=== PATIENT | female | born 1995 | race Caucasian/White ===

== ENCOUNTER 2021-02-15 01:53 | Inpatient (IN) ==
[2021-02-15] MEDS ORDERED: OXYTOCIN 30 UNITS/500 ML BAG IV PRN ×3 (04:41→18:37)
[2021-02-15] MEDS: LACTATED RINGER'S 1,000 ML IV PRN ×2 (04:56→11:58)
[2021-02-15 05:05] LABS: Hematocrit (blood only) 38.1 % (37-47); Hemoglobin 12.8 g/dL (12.0-16.0); Mean Corpuscular Hgb Conc 33.6 g/dL (32-36); Mean Corpuscular Volume 83.4 fL (80-100); Platelet Count 266 K/uL (130-400); RDW Coefficient of Variation 15.1 % (11.5-14.5); RDW Standard Deviation 46.4 fL (36.4-46.3); Red Blood Count 4.57 M/uL (4.2-5.4); White Blood Count 10.88 K/uL (4.8-10.8)
--- NOTE | 2021-02-15 09:44 | History & Physical Report ---
Date of Service February 15, 2021 Assessment & Plan (1) Irregular uterine contractions: (2) Labor, prolonged latent phase: Patient is a 25-year-old -0-0-1 at 38 weeks and 5 days of gestation presented to labor and delivery with irregular contractions, prolonged latent phase Vital signs stable afebrile GBS negative heart rate reassuring with normal baseline, accelerations present, decelerations absent, minimal to moderate variability. Plan, IV fluids, augment contractions with oxytocin/oxytocin challenge test Continue to monitor All questions were answered. Admission and Anticipated Discharge Date Admission Date: February 15, 2021 History of Present Illness Primary Care Provider: Elzbieta Puri MD Patient is a 25-year-old -0-0-1 at 38 weeks and 5 days of gestation who was admitted by Dr. Osorio this morning with contractions. Contractions started around 11:45 PM last night and got more regular and painful and she presented to labor and delivery at around 2 AM. Her cervix was 3 to 4 cm dilated 60% effaced -2 by labor and delivery nurse. She was expectantly managed. Contractions are still irregular every 4 to 6 minutes and not much painful. I checked her at 7:30 AM when I came this morning her cervix was 4 cm dilated 50% effaced head was ballotable at -4. heart rate with baseline of 140 with accelerations, no decelerations but with minimal variability. We gave her IV fluid bolus and p.o. apple juice and heart rate had been same with minimal variability is above. Her cervix is about the same since this morning. After discussion with the patient and her about her labor pattern and decreased heart rate heart rate variability we decided to keep her and augment the contractions with Pitocin which will also give us information as oxytocin challenge test. Her has been uncomplicated, GBS negative, coronavirus testing is negative. Rh- Allergies Allergy/AdvReac Type Severity Reaction Status Date / Time amoxicillin Allergy Mild Hives Verified 09/20/18 06:05 Home Medications Medication Instructions Recorded Confirmed Type Multivit/Min/Iron/Fol Ac/Pren 1 tab PO QPM #0 tab 01/09/15 02/15/21 History ( Vitamin) Patient History Medical History Ankle sprain Anxiety Dizziness Foot sprain normal course (spontaneous vaginal delivery) 2014, 2017 Urinary tract infection UTI (urinary tract infection) Weakness Family History Other Hypertension Social History Smoking Status: Never smoker Second Hand Exposure: No; Hx Alcohol Use: No Hx Substance Use: No Preferred Language: Sinhala Communication Ability: Effective Aviation Safety Inspector Required: No Beliefs That Will Affect Care: None marital status: Current Living Situation: Family Other Information That Helps Us Care for You: No Feels Safe at Home: Yes Safety Concerns: Feels Safe At This Time Assistive Devices: None OB History FT in 2018 by myself, no complications. 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 No h/o STD's, no HSV,Chlamydia/ GC Review of Systems All systems reviewed & are unremarkable except as noted in HPI & below Physical Exam Constitutional: WD/WN, vitals as above well developed NAD Gastrointestinal (Abdomen): normal bowel sounds, soft, nontender, no hepatosplenomegaly (GRAVID) Genitourinary: normal external appearance Manual OB Exam: + cervical dilation 4 cm, + cervical effacement 50% and + station high OB Exam Monitor Tracing: + category I Results & Data ([facility]) Vital Signs (Past 12 Hours) Vital Signs Temp Pulse Resp BP 02/15/21 07:30 37 C 77 18 123/70 02/15/21 07:24 77 123/70 02/15/21 04:59 36.9 C 76 130/65 02/15/21 02:11 36.7 C 20 02/15/21 02:08 78 135/72 02/15/21 02:06 36.7 C 20 Laboratory Results Lab Results 02/15/21 02/15/21 02/15/21 Range/Units 04:45 04:45 04:48 WBC 10.88 H (4.8-10.8) K/uL RBC 4.57 (4.2-5.4) M/uL Hgb 12.8 (12.0-16.0) g/dL Hct 38.1 (37-47) % MCV 83.4 (80-100) fL MCH 28.0 (25-34) pg MCHC 33.6 (32-36) g/dL RDW Std Deviation 46.4 H (36.4-46.3) fL RDW Coeff of Noemi 15.1 H (11.5-14.5) % Plt Count 266 (130-400) K/uL MPV 10.0 (7.4-10.4) fL COVID-19 Eval [facility] SARS-CoV-2, RNA, NAAT NEGATIVE (NEGATIVE) Monitoring External Monitor 140's, accelerations, no decels, minimal variability with episodes of increased variability Tocodynamometer Contractions q 4-7 min
[2021-02-15] MEDS ORDERED: fentaNYL citrate 100 MCG/2 ML VIAL ONE (15:17)
[2021-02-15] MEDS ORDERED: BUPIVACAINE 0.25% 30 ML VIAL ONE (15:17)
[2021-02-15] MEDS ORDERED: ePHEDrine sulfate 50 MG/ML AMP ONE (15:17)
[2021-02-15] MEDS ORDERED: SODIUM CHLORIDE 0.9% INJ 10 ML VIAL ONE (15:17)
[2021-02-15] MEDS ORDERED: fentaNYL 2MCG/ML ROPIVACAINE 1.25MG/ML 100 ML BAG EPI ONE (15:18)
--- NOTE | 2021-02-15 15:42 | Obstetrical Progress Note ---
Date of Service February 15, 2021 Assessment & Plan Admission and Anticipated Discharge Date Admission Date: February 15, 2021 Subjective Late entry from 1500 Patient feel more painful contractions, 6/10 in intensity Pitocin is at 12 miu/min Ctxs amado till irregular VE; 4-5 cm/ 50%/ -2, tight bag, AROM'ed clear fluid, abundant FHR 130-140's, accels+, no decels, min to moderate variability Continue to monitor closely Epidural for pain when she desires Results & Data ([facility]) Vital Signs (Past 12 Hours) Vital Signs Temp Pulse Resp BP 02/15/21 15:07 88 129/72 02/15/21 14:01 88 128/66 02/15/21 13:02 85 134/69 02/15/21 12:01 90 130/73 02/15/21 12:00 37.2 C 90 18 130/73 02/15/21 07:30 37 C 77 18 123/70 02/15/21 07:25 37.0 C 77 18 123/70 02/15/21 07:24 77 123/70 02/15/21 04:59 36.9 C 76 130/65
[2021-02-15] MEDS ORDERED: ONDANSETRON INJ 2 MG/ML 2 ML VIAL IV PRN (15:44)
[2021-02-15] MEDS ORDERED: diphenhydrAMINE 50 MG/ML VIAL IV PRN (15:44)
[2021-02-15] MEDS ORDERED: ePHEDrine sulfate 50 MG/ML AMP IV PRN (15:44)
[2021-02-15] MEDS ORDERED: NALOXONE HCL 1 MG in SODIUM CHLORIDE 0.9% 1000ML 1,000 ML IV PRN (15:44)
[2021-02-15] MEDS ORDERED: METOCLOPRAMIDE HCL 20 MG in SODIUM CHLORIDE 0.9% 50 ML IV PRN (15:44)
[2021-02-15] MEDS ORDERED: fentaNYL 2MCG/ML ROPIVACAINE 1.25MG/ML 100 ML BAG EPI PRN (15:44)
[2021-02-15] MEDS ORDERED: NALOXONE HCL 0.4 MG/1 ML VIAL/CARP IV PRN (15:44)
--- NOTE | 2021-02-15 15:44 | Anesthesiology Consultation ---
Date of Service February 15, 2021 Assessment & Plan Chart Review Chart Review: Acceptable Risk for Labor Epidural Consults Requested none ASA ASA2 Proposed Anesthesia Anesthesia Type: Labor Epidural Risk / Benefits Reviewed With: PT / POA / Parent / Guardian, Accepts Plan and Informed Consent Obtained History Height/Weight Height: 5 ft 4 in Weight: 89.811 kg Allergies Allergy/AdvReac Type Severity Reaction Status Date / Time amoxicillin Allergy Mild Hives Verified 09/20/18 06:05 Medications Home Medications Medication Instructions Recorded Confirmed Last Taken Multivit/Min/Iron/Fol Ac/Pren 1 tab PO QPM #0 tab 01/09/15 02/15/21 02/14/21 22:00 ( Vitamin) Active Medications Generic Name Dose Route Start Last Admin Trade Name Freq PRN Reason Stop Dose Admin Lactated Ringer's 1,000 mls @ 150 mls/hr 02/15/21 04:41 02/15/21 11:58 Lr IV 02/17/21 04:40 150 mls/hr .Q6H40M PRN Administration L&D Protocol Protocol Oxytocin 30 units in 500 mls @ 10 mls/hr 02/15/21 09:45 02/15/21 14:00 Pitocin IV 02/17/21 09:44 0.6 units/hr .Q24H PRN 10 mls/hr Labor Induction/Augmentation Titration Protocol 0.6 UNITS/HR NPO Date Last Intake of Fluids: 02/15/21 Time Last Intake of Fluids: 15:00 Date Last Intake of Solids: 02/14/21 Time Last Intake of Solids: 19:30 Past Medical History Medical History Ankle sprain Anxiety Dizziness Foot sprain normal course (spontaneous vaginal delivery) 2014, 2017 Urinary tract infection UTI (urinary tract infection) Weakness Exercise / Class Metabolic Activity II 4-5 Yardwork/Stairs/Walk up hill Past Family History Family History Other Hypertension Past Anesthesia History No Hx of Anesthesia Complications and No Family Hx of Anesthesia Complications History of PONV No Hx of PONV and No Hx of Motion Sickness Social History Smoking Status: Never smoker Hx Alcohol Use: No Hx Substance Use: No substance use type: does not use Physical Exam Vital Signs Last Vital Signs Temp 37.2 C 02/15/21 12:00 Pulse 88 02/15/21 15:07 Resp 18 02/15/21 12:00 BP 129/72 02/15/21 15:07 ENMT Mouth: no TMJ abnormality Thyromental Distance: > or= 3.5 Finger Breadths Mallampati Class: II Neck normal visual inspection and trachea midline; neck extension not limited Respiratory normal respiratory effort Auscultation: lungs clear to auscultation bilaterally Cardiovascular Rate/Rhythm: regular rate and regular rhythm Heart Sounds: no murmur Musculoskeletal Spine: normal cervical ROM Extremities: full ROM of extremities Neurologic moves all extremities Psychiatric Orientation: alert and oriented x 3 Testing Laboratory Results 02/15/21 04:48
[2021-02-15] MEDS ORDERED: D5W AND LACTATED RINGERS 1,000 ML IV SCH (16:00)
--- NOTE | 2021-02-15 17:14 | Obstetrical Progress Note ---
Date of Service February 15, 2021 Assessment & Plan Admission and Anticipated Discharge Date Admission Date: February 15, 2021 Subjective Patient is comfortable now, received epidural for pain VE; 5/ 50%/ -2 FHR categ I Centuria ctxs q 2-4 min Continue to monitor closely Peanut ball Results & Data ([facility]) Vital Signs (Past 12 Hours) Vital Signs Temp Pulse Resp BP Pulse Ox 02/15/21 17:08 81 94 02/15/21 17:03 76 96 02/15/21 17:00 80 94 02/15/21 16:58 82 95 02/15/21 16:55 76 114/60 02/15/21 16:53 82 95 02/15/21 16:50 76 124/62 02/15/21 16:48 92 H 97 02/15/21 16:45 79 123/58 L 94 02/15/21 16:43 89 96 02/15/21 16:40 75 119/59 L 02/15/21 16:38 78 96 02/15/21 16:35 78 118/64 02/15/21 16:33 84 95 02/15/21 16:30 96 H 125/67 02/15/21 16:28 85 97 02/15/21 16:27 86 126/68 02/15/21 16:25 83 120/71 02/15/21 16:24 72 122/62 02/15/21 16:23 84 97 02/15/21 16:21 79 121/75 02/15/21 16:20 82 116/65 02/15/21 16:18 80 115/66 97 02/15/21 16:16 88 124/68 02/15/21 16:14 97 H 141/66 H 02/15/21 16:13 85 97 02/15/21 16:12 88 136/71 02/15/21 16:10 76 128/68 02/15/21 16:08 89 98 02/15/21 16:03 78 140/74 99 02/15/21 15:58 85 97 02/15/21 15:55 37.2 C 99 H 18 127/63 98 02/15/21 15:53 81 127/63 98 02/15/21 15:48 85 99 02/15/21 15:07 88 129/72 02/15/21 14:01 88 128/66 02/15/21 13:02 85 134/69 02/15/21 12:01 90 130/73 02/15/21 12:00 37.2 C 90 18 130/73 02/15/21 07:30 37 C 77 18 123/70 02/15/21 07:25 37.0 C 77 18 123/70 02/15/21 07:24 77 123/70
[2021-02-15] MEDS ORDERED: bisacodyL 10 MG SUPP PR PRN (18:37)
[2021-02-15] MEDS ORDERED: ACETAMINOPHEN 325 MG TAB PO PRN (18:37)
[2021-02-15] MEDS ORDERED: HYDROCORTISONE ACETATE 25 MG SUPP PR PRN (18:37)
[2021-02-15] MEDS ORDERED: DIPHTHERIA/TETANUS/PERTUSSIS 0.5 ML SYR/VIAL IM ONE (18:37)
[2021-02-15] MEDS ORDERED: MEASLES, MUMPS & RUBELLA VIRUS VIAL SQ ONE (18:37)
[2021-02-15] MEDS ORDERED: BENZOCAINE 20% AER SPR 82.5 GM CAN EXT PRN (18:37)
[2021-02-15] MEDS ORDERED: SUPERCREAM 0.870% 15 GM JAR EXT PRN (18:37)
--- NOTE | 2021-02-15 18:54 | Anesthesiology Progress Note ---
Date of Service February 15, 2021 Anesthesia Post Procedure Vital Signs Vital Signs: Temp Pulse Resp BP Pulse Ox 02/15/21 18:50 85 18 126/66 02/15/21 18:38 93 H 96 02/15/21 18:35 85 18 120/57 L 96 02/15/21 18:33 78 98 02/15/21 18:28 92 H 97 02/15/21 18:27 92 H 136/64 02/15/21 18:23 102 H 100 02/15/21 18:18 92 H 98 02/15/21 18:13 90 139/68 98 02/15/21 18:08 92 H 98 02/15/21 18:03 84 97 02/15/21 17:58 78 119/63 96 02/15/21 17:53 96 H 97 02/15/21 17:48 99 H 98 02/15/21 17:43 83 96 02/15/21 17:42 86 121/64 02/15/21 17:38 89 95 02/15/21 17:33 80 96 02/15/21 17:28 82 96 02/15/21 17:27 83 125/70 02/15/21 17:23 86 96 02/15/21 17:18 86 96 02/15/21 17:13 83 96 02/15/21 17:12 85 123/76 02/15/21 17:08 81 94 02/15/21 17:03 76 96 02/15/21 17:00 80 94 02/15/21 16:58 82 95 02/15/21 16:55 76 114/60 02/15/21 16:53 82 95 02/15/21 16:50 76 124/62 02/15/21 16:48 92 H 97 02/15/21 16:45 79 123/58 L 94 02/15/21 16:43 89 96 02/15/21 16:40 75 119/59 L 02/15/21 16:38 78 96 02/15/21 16:35 78 118/64 02/15/21 16:33 84 95 02/15/21 16:30 96 H 125/67 02/15/21 16:28 85 97 02/15/21 16:27 86 126/68 02/15/21 16:25 83 120/71 02/15/21 16:24 72 122/62 02/15/21 16:23 84 97 02/15/21 16:21 79 121/75 02/15/21 16:20 82 116/65 02/15/21 16:18 80 115/66 97 02/15/21 16:16 88 124/68 02/15/21 16:14 97 H 141/66 H 02/15/21 16:13 85 97 02/15/21 16:12 88 136/71 02/15/21 16:10 76 128/68 02/15/21 16:08 89 98 02/15/21 16:03 78 140/74 99 02/15/21 15:58 85 97 02/15/21 15:55 37.2 C 99 H 18 127/63 98 02/15/21 15:53 81 127/63 98 02/15/21 15:48 85 99 02/15/21 15:07 88 129/72 02/15/21 14:01 88 128/66 02/15/21 13:02 85 134/69 02/15/21 12:01 90 130/73 02/15/21 12:00 37.2 C 90 18 130/73 02/15/21 07:30 37 C 77 18 123/70 02/15/21 07:25 37.0 C 77 18 123/70 02/15/21 07:24 77 123/70 02/15/21 04:59 36.9 C 76 130/65 02/15/21 02:11 36.7 C 20 02/15/21 02:08 78 135/72 02/15/21 02:06 36.7 C 20 Pain Intensity Lower Medial Abdomen: Pain Intensity: 0 Transfer of Care Handoff Completed per policy Notes Mental Status: alert / awake / arousable and participated in evaluation Patient Amnestic to Procedure: Yes Nausea / Vomiting: adequately controlled Pain: adequately controlled Airway Patency, RR, SpO2: stable & adequate BP & HR: stable & adequate Hydration State: stable & adequate Anesthetic Complications: no major complications apparent and Pt Satisfied with anesthetic care
[2021-02-15] MEDS: DOCUSATE SODIUM 100 MG CAP PO SCH (20:55)
--- NOTE | 2021-02-16 01:44 | Delivery Summary ---
DATE OF OPERATION: 02/15/2021 DELIVERY NOTE TIME OF DELIVERY: 18:24 p.m. DETAILS OF DELIVERY: The patient was found to be fully dilated and desired to push. She pushed through 2 contractions only, delivered the head without difficulty. There was a nuchal cord around the neck x1 which was reduced. Shoulders were delivered with minimal traction. Baby was handed off to the mother where mouth and nose were suctioned. Cord was clamped x2 and cut. Cord blood was obtained. Perineum and vagina were checked for lacerations and it was intact. No lacerations were found. The placenta was found to be in the vagina, delivered spontaneous as intact and complete. Uterus was explored, found to be empty. Fundus was firm. EBL was 100 mL. Mom and baby tolerated the procedure well. Sponge and instrument count was correct x2. Baby was a viable male , Apgars 8/9, weight is 3668 gr. No complications happened and I was present during whole procedure. I attest to the content of the Intraoperative Record and any orders documented therein. Any exceptions are noted below. BITA
[2021-02-16] MEDS: IBUPROFEN 600 MG TAB PO PRN ×3 (04:19→15:35)
[2021-02-16 06:39] LABS: Hematocrit (blood only) 34.9 % (37-47); Hemoglobin 11.4 g/dL (12.0-16.0); Mean Corpuscular Hemoglobin 27.3 pg (25-34); Mean Corpuscular Hgb Conc 32.7 g/dL (32-36); Mean Corpuscular Volume 83.7 fL (80-100); Mean Platelet Volume 9.8 fL (7.4-10.4); Platelet Count 199 K/uL (130-400); RDW Coefficient of Variation 15.2 % (11.5-14.5); RDW Standard Deviation 46.5 fL (36.4-46.3); Red Blood Count 4.17 M/uL (4.2-5.4)
[2021-02-16] MEDS ORDERED: PRENATAL VITAMIN 1 TAB PO SCH (08:00)
[2021-02-16] MEDS ORDERED: FERROUS SULFATE 325 MG TAB PO SCH (08:00)
[2021-02-16] MEDS: DOCUSATE SODIUM 100 MG CAP PO SCH ×2 (08:48→20:28)
--- NOTE | 2021-02-16 09:44 | Obstetrical Progress Note ---
Date of Service February 16, 2021 Assessment & Plan Admission and Anticipated Discharge Date Admission Date: February 15, 2021 Subjective PPD#1 doing well plans for d/c later today passing gas tolerating diet out of bed Physical Exam Constitutional: WD/WN, vitals as above comfortable abdomen soft and non- tender no edema neg Prudencio's for d/c home today Results & Data ([facility]) Vital Signs (Past 12 Hours) Vital Signs Temp Pulse Resp BP 02/16/21 08:06 36.5 C 67 18 128/77 02/16/21 04:20 36.4 C L 68 18 118/72 02/15/21 23:45 36.7 C 71 18 123/76 Laboratory Results Laboratory Results - last 72 hr 02/15/21 02/15/21 02/15/21 04:45 04:45 04:48 WBC 10.88 H RBC 4.57 Hgb 12.8 Hct 38.1 MCV 83.4 MCH 28.0 MCHC 33.6 RDW Std Deviation 46.4 H RDW Coeff of Noemi 15.1 H Plt Count 266 MPV 10.0 COVID-19 Eval Order Covid19 [facility] SARS-CoV-2, RNA, NAAT NEGATIVE Blood Type Antibody Screen Screen 02/16/21 02/16/21 06:17 06:17 WBC 11.30 H RBC 4.17 L Hgb 11.4 L Hct 34.9 L MCV 83.7 MCH 27.3 MCHC 32.7 RDW Std Deviation 46.5 H RDW Coeff of Noemi 15.2 H Plt Count 199 MPV 9.8 COVID-19 Eval Order SARS-CoV-2, RNA, NAAT Blood Type A Negative Antibody Screen NEGATIVE Screen Negative
[2021-02-16] MEDS ORDERED: bisacodyL 5 MG TABEC PO SCH (20:00)
== END 2021-02-16 20:15 | disposition home or self-care (01) | DRG 807 ==
LOC: OPB 01:53 → 4S1 02:01 → 4S2 20:54

== ENCOUNTER 2024-02-16 20:54 | Observation (INO) ==
[2024-02-16] MEDS ORDERED: ACETAMINOPHEN 325 MG TAB PO PRN (21:26)
[2024-02-16] MEDS: LACTATED RINGER'S 1,000 ML IV ONE ×2 (21:45→23:24)
[2024-02-16 22:24] LABS: Appearance Urine Clear (Clear); Bacteria Urine Automated Negative (Negative); Bilirubin Urine Negative (Negative); Blood Urine Negative (Negative); Color Urine Yellow; Epithelial Cell Urine Auto >30 /lpf (0-5); Glucose Urine UA Negative (Negative); Ketones Urine Trace (Negative); Leukocyte Esterase Urine 1+ (Negative); Nitrite Urine Negative (Negative); Protein Urine Negative (Negative); RBC Urine Automated 0-4 /hpf (0-4); Specific Gravity Urine 1.011 (1.000-1.030); Urobilinogen Urine Negative (Negative)
[2024-02-16] MEDS ORDERED: BUTORPHANOL TARTRATE 2 MG/ML VIAL IV PRN (23:21)
[2024-02-16] MEDS: ACETAMINOPHEN 1,000 MG/100 ML VIAL IV STA (23:36)
[2024-02-17] MEDS ORDERED: LACTATED RINGER'S 1,000 ML IV PRN (01:41)
[2024-02-17] MEDS ORDERED: OXYTOCIN 30 UNITS/NSS 30 UNITS/500 ML BAG IV PRN (01:41)
[2024-02-17] MEDS ORDERED: LIDOCAINE 1% LOCAL 20 ML VIAL INFIL PRN (01:41)
[2024-02-17] MEDS: ceFAZolin 2000MG 2,000 MG/15 ML SYR IV SCH (02:00)
--- NOTE | 2024-02-17 02:01 | Obstetrical Progress Note ---
Date of Service February 17, 2024 Assessment & Plan (1) Uterine contractions at greater than 20 weeks of gestation: (2) Labor, prolonged latent phase: Plan: Patient is a 28-year-old -0-0-3 at 38 weeks and 5 days of gestation who presented with with irregular contractions which were happening for the last 3 weeks, cervical change since she arrived to labor and delivery last night, Vital signs stable afebrile, heart rate reassuring, GBS positive, Plan to admit, monitor, labs, start IV antibiotics, expectant management for now and reevaluate in the morning after IV antibiotics are complete, epidural for pain when she desires All questions were answered. (3) GBS (group B Streptococcus carrier), +RV culture, currently : Admission and Anticipated Discharge Date Admission Date: February 17, 2024 Subjective Patient is a 28-year-old -0-0-3 at 38 weeks and 5 days of gestation who has been having irregular contractions for the last 3 weeks. She has been here 3 times for the last 3 weeks with irregular contractions and has not been active labor and sent home. She states they never stopped they make her uncomfortable and she cannot rest or sleep. She denies leakage of fluid or vaginal bleeding. She reports good movements. Her has been uncomplicated except GBS positive. She denies any other medical problems. Review of Systems Constitutional: as per Subjective / HPI Physical Exam Constitutional: WD/WN, vitals as above well developed and well nourished Gastrointestinal (Abdomen): normal bowel sounds, soft, nontender, no hepatosplenomegaly Genitourinary: normal external appearance OB Exam Abdomen: + vertex Manual OB Exam: + cervical dilation 4 cm, + cervical effacement 50% and + station -2 (tight bulging bag) OB Exam Monitor Tracing: + external uterine monitor used and + category I Results & Data Vital Signs (Past 12 Hours) Vital Signs Temp Pulse Resp BP 02/17/24 00:17 76 129/70 02/17/24 00:15 20 02/16/24 21:05 85 138/77 02/16/24 21:00 36.7 C 20
[2024-02-17 02:39] LABS: Hemoglobin 11.5 g/dl (12.0-16.0); Mean Corpuscular Hemoglobin 27.1 pg (25.0-34.0); Mean Corpuscular Hgb Conc 33.8 g/dL (32.0-36.0); Mean Platelet Volume 9.7 fL (9.4-12.4); Platelet Count 283 K/uL (130-400); RDW Coefficient of Variation 14.3 % (11.5-14.5); RDW Standard Deviation 41.3 fL (36.4-46.3); Red Blood Count 4.25 M/uL (4.20-5.40); White Blood Count 12.82 K/ul (4.8-10.8)
--- OUTSIDE RECORDS SUMMARY | 2024-02-17 09:36 | External Medical Summary ---
Author Name Unknown Address Unknown Organization [id number]:[facility] - [address] [place] [address] Laboratory Report Ordering Provider Test Date Status NEMO PACE 02/01/2024 11:16:52 Final Observation Date Value Abnormality Reference (Units) Status Bacteria identified in Specimen by Culture 02/01/2024 11:16:52 [id number]^BETA STREPTOCOCCUS GROUP B Abnormal Final Beta Streptococcus group B Performing Location [facility] - [address] [place] [address] Ordering Provider Test Date Status NEMO PACE 02/01/2024 11:16:52 Final Observation Date Value Abnormality Reference (Units ) Status Clindamycin 02/01/2024 11:16:52 >=1 Resistant Final Penicillin susceptibility 02/01/2024 11:16:52 <=0.06 Susceptible Final Vancomycinsusceptibility 02/01/2024 11:16:52 0.5 Susceptible Final Test: Group B Strep Suscepti bility
Specimen Source: Vaginal Rectal
Specimen Type: Swab
Specimen Date: 02/01/2024 11:16 AM
Result Date: 02/06/2024 12:27 PM
Result Status: Final result
Abnormal: Yes
Resulting Lab: [facility]
[address]
[place] [id number]

CULTURE

Beta Streptococcus group B (Abnormal)

SUSCEPTIBILITY

Beta Streptococcus
group B
METHOD MICROBROTH
DILUTIONS

CLINDAMYCIN >=1 Resistant
PENICILLIN G <=0.06 Susceptible
VANCOMYCIN 0.5 Susceptible

null Performing Location [facility] - [address] [facility] [address]
--- OUTSIDE RECORDS SUMMARY | 2024-02-17 09:36 | External Medical Summary | Summary of Care ---
Author Name Unknown Organization [facility] Address [address] [facility] [place] [address] Phone [phone] Care Team Providers Care Airport Duty Manager Name Role Phone Unavailable Primary Care Provider Unavailabl e Reason for Visit * Reason Comments Return Visit Encounter Details Date Type Department Care Team (Late st Contact Info) Description 02/12/2024 8:45 AM EDT Office Visit Gynecology/Obstetri [facility]antos [facility] [address] [place] [address] Mai Mar CRNP [address] [place] [address] Supervision of other normal , antepartum*; Family history of Down syndrome; Rh negative status during in third trimester; GBS (group B Streptococcus carrier), +RV culture, currently Allergies Active Allergy Reactions Criticality Noted Date Comments Amoxicillin Hives,Rash High 07/18/2013 documented as of this encounter (statuses as of 02/12/2024) Medications Medication Sig Dispensed Refills Start Date End Date Status 27-0.8 MG Oral Tablet Take 1 Tablet by mouth daily at noon. 0 Active documented as of this encounter (statuses as of 02/12/2024) Active Problems Problem Noted Date Diagnosed Date GBS (group B Streptococcus c arrier), +RV culture, currently 02/07/2024 Supervision of other normal , antepartu m 07/20/2023 Rh negative status during 07/30/2020 Overview: A neg Vitamin D insufficiency 01/20/2015 Overview: Dec 2014 = 23. Anxiety state 01/19/2015 Overview: 2012 - [place] Suggested contacting her again, eliminating caffeine, getting sufficient rest, getting exercise. Family history of Down syndrome 12/12/2014 Overview: sister with down syndrome Estimated Date of Delivery Comme nts Yes 02/27/2024 Based on Ultraso und documented as of this encounter (statuses as of 02/12/2024) Resolved Problems Problem Noted Date Diagnosed Date Resolved Date Supervision of other normal 07/15/2020 02/15/2021 Overview: Rubella immune Flu vacc. 11/10/20 Supervision of other normal , antepartum 02/08/2018 09/20/2018 Overview: Rhogam given 07/13/2018 Araseli Powell RN TDAP given 07/13/2018 Araseli Powell RN Problem Action Taken Date entered Entered by Date resolved WIC Due date letter given. 07/27/2018 Nahed Hamlin RN 07/27/2018 Problem Action Taken Date entered Entered by Date resolved Breast Feeding Pt plans on breast feeding-has pump from previous 08/13/2018 Radha Canada RN 08/13/18 Problem Action Taken Date entered Entered by Date resolved Current needs or questions Patient denies having any current needs or questions 08/27/2018 Batool Srinivasan RN 08/27/18 Problem Action Taken Date entered Entered by Date resolved Current needs or questions Patient denies having any current needs or questions 09/17/2018 Nahed Hamlin RN 09/17/2018 GBS (group B Streptococcus c arrier), +RV culture, currently 07/23/2015 09/02/2015 Rh negative, antepartum 12/15/2014 11/0 11/2017 Overview: Rhogam candidate 07/13/18 , normal first 12/12/201408/20 Overview: 07/10/2015 Tdap Vaccine administered per clinic protocol. Pt given VIS(vaccine information sheet) Priyanka Beaulieu RN documented as of this encounter (statuses as of 02/12/2024) Immunizations Name Administration Dates Next Due Seasonal Influenza, PF, 6 M & above, IM , (FluLaval or Fluzone) 11/10/2020 TDAP (age 10 and older)(Boostrix) 2023,12/08/2020,07/13/2018,07/10/20 15 documented as of this encounter Social History Tobacco Use Types Packs/Day Years Used Date Smoking Tobacco: Never Smokeless Tobacco: Never Alcohol Use Standard Drinks/Week Comments No 0 (1 standard drink = 0.6 oz pur e alcohol) PHQ-2 Answer Date Recorded PHQ-2 Score 0 06/30/2020 Hunger Vital Sign Answer Date Recorded Within the past 12 months, y ou worried that your food would run out before you got the money to buy more. Never true 07/20/20 23 Within the past 12 months, t he food you bought just didn't last and you didn't have money to get more. Never true 07/20/2023 [place] Depression Scale Answer Date Recorded [place] Depression Scale Total 7 01/23/2024 The thought of harming myself has occurred to me . Never 01/23/2024 Estimated Date of Delivery Comme nts Yes 02/27/2024 Based on Ultraso und Sex and Gender Information Value Date Recorded Sex Assigned at Female 07/20/2023 9:06 AM EDT Gender Identity Female 07/20/2023 9:06 AM EDT Sexual Orientation Straight 06/08/2021 1: 57 PM EDT Job Start Date Occupation Industry Not on file Not on file Not on file documented as of this encounter Last Filed Vital Signs Vital Sign Reading Time Taken Comments Blood Pressure 112/72 02/12/2024 8:37 AM EDT Pulse - - Temperature - - Respiratory Rate - - Oxygen Saturation - - Inhaled Oxygen Concentration - - Weight 92.5 kg (204 lb) 02/12/2024 8:37 AM EDT Height - - Body Mass Index 35.02 02/01/2024 10:11 AM EDT documented in this encounter Progress Notes * Mai Mar CRNP - 02/12/2024 8:39 AM EDT 37w6d Some irregular ctx. No bleeding/leaking. Baby is active. 1 week return GONSALO Boles * Melissa Garcia LPN - 02/12/2024 8:37 AM EDT 37w6d Denies vaginal bleeding/rom + movement Some contractions documented in this encounter Plan of Treatment Upcoming Encounters Date Type Department Care Team (Late st Contact Info) Description 02/23/2024 8:45 AM EDT [facility] [address] [place] [address] Mai Mar CRNP [address] [place] [address] Health Maintenance Due Date Last Done Comments Hepatitis B (1 of 3 - 19+ 3-dose series) 2014 Depression Screening 06/30/2021 06/30/2020 COVID-19 Vaccine ( - 2022- season) 2023 Influenza Vaccine (FLU shot) (#1) 2023 11/10/2020, 11/10/2020, 09/21/2018 Pap Smear 07/20/2026 07/20/2023, 06/21, 03/14/2017 DTaP,Tdap,and Td Vaccines (5 - Td or Tdap) 12/29/2033 12/29/2023, 12/08/2020, 07/13/2018, Additional history exists Gonorrhea / Chlamydia Screen Discontinued 07/20/2023, 07/15/2020, 02/08/2018, Additional history exists GARDASIL-HPV IMMUNIZATION SERIES Aged Out No longer eligible based on patient's age to complete this topic MENINGOCOCCAL (MENACTRA/MENVEO) Aged Out No longer eligible based on patient's age to complete this topic Pneumococcal Vaccine: Pediatrics (0 to 5 Years) and At-Risk Patients (6 to 64 Years) Aged Out No longer eligible based on patient's age to complete this topic documented as of this encounter Medical Devices Not on filedocumented as of this encounter Visit Diagnoses Diagnosis Supervision of other normal , antepartum- Primary Family history of Down syndrome Family history of congenital anomalies Rh negative status during in third trimester GBS (group B Streptococcus carrier), +RV culture, currently Supervision of other high-risk documented in this encounter
--- OUTSIDE RECORDS SUMMARY | 2024-02-17 09:36 | External Medical Summary | Summary of Care ---
Author Name Unknown Organization [facility] Address [address] [facility] [place] [address] Phone [phone] Care Team Providers Care Gate Technician Name Role Phone Unavailable Primary Care Provider Unavailabl e Reason for Visit * Reason Comments Return Visit Encounter Details Date Type Department Care Team (Late st Contact Info) Description 02/07/2024 8:30 AM EDT Office Visit Gynecology/Obstetri santos [facility] [address] [place] [address] Mai Mar CRNP [address] [place] [address] Supervision of other normal , antepartum*; Family history of Down syndrome; Rh negative status during in third trimester; GBS (group B Streptococcus carrier), +RV culture, currently Allergies Active Allergy Reactions Criticality Noted Date Comments Amoxicillin Hives,Rash High 07/18/2013 documented as of this encounter (statuses as of 02/07/2024) Medications Medication Sig Dispensed Refills Start Date End Date Status 27-0.8 MG Oral Tablet Take 1 Tablet by mouth daily at noon. 0 Active documented as of this encounter (statuses as of 02/07/2024) Active Problems Patient Care Coordination No te Formatting of this note is d ifferent from the original. Problem Action Taken Date entered Entered by Date resolved nutrition Attending [facility] 05/18/2015 Nahed Hamlin RN education [place] [facility] 05/18/2015 Nahed Hamlin RN education Accepts for Aug 05/18/2015 Nahed Hamlin RN Problem Action Taken Date entered Entered by Date resolved Reviewed problem list No changes noted 06/04/2015 Batool Srinivasan RN Problem Action Taken Date entered Entered by Date resolved Current needs or questions Patient denies having any current needs or questions 07/10/2015 Batool Srinivasan RN Problem Action Taken Date entered Entered by Date resolved Current needs or questions Patient denies having any current needs or questions 07/23/2015 Batool Srinivasan RN Problem Action Taken Date entered Entered by Date resolved Concerns about signs of labor Educated pt on when to call for evaluation: contx every 5 min for an hour, rom, vaginal bleeding, decreased movement 08/05/2015 Batool Srinivasan RN Problem Action Taken Date entered Entered by Date resolved PP visit Pt doing well. . Adjusting. Baby doing well. Gaining weight. Plans ocp's for control. 09/22/2015 Nahed Hamlin RN Problem Noted Date Diagnosed Date GBS (group B Streptococcus c arrier), +RV culture, currently 02/07/2024 Supervision of other normal , antepartu 07/20/2023 Rh negative status during 07/30/2020 Overview: A neg Vitamin D insufficiency 01/20/2015 Overview: Dec 2014 = 23. Anxiety state 01/19/2015 Overview: 2012 - saw counselor in [place] [facility]. Suggested contacting her again, eliminating caffeine, getting sufficient rest, getting exercise. Family history of Down syndrome 12/12/2014 Overview: sister with down syndrome Estimated Date of Delivery Comme nts Yes 02/27/2024 Based on Ultraso und documented as of this encounter (statuses as of 02/07/2024) Resolved Problems Problem Noted Date Diagnosed Date [...] as of this encounter (statuses as of 02/07/2024) Immunizations Name Administration Dates Next Due Seasonal [...] money to get more. Never true 07/20/2023 [place] Depression Scale Answer Date Recorded [place] Depression Scale Total 7 01/23/2024 The thought [...] Sign Reading Time Taken Comments Blood Pressure 104/70 02/07/2024 8:22 AM EDT Pulse - - Temperature - - Respiratory Rate - - Oxygen Saturation - - Inhaled Oxygen Concentration - - Weight 92.1 kg (203 lb) 02/07/2024 8:22 AM EDT Height - - Body Mass Index 34.84 02/01/2024 10:11 AM EDT documented in this encounter Progress Notes * Mai Mar CRNP - 02/07/2024 8:30 AM EDT 37w1d No bleeding, baby is active. Was at the hospital for ctx last week, sent home. Still w/ctx but not regular. Increase in discharge, feeling damp, nothing constant. Unsure if ROM vs normal discharge. Staying hydrated, no bladder changes. Denies vaginal itching/burning. On exam, perineum is dry. No pooling, neg Nitrazine, +physiologic discharge. Cervix 2 cm, unchangedfrom last exam. Return in 1 week, call sooner prn. 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 Name of healthcare administrative assistant: GONSALO Sims LPN documented in this encounter Nursing Notes * Melissa Garcia LPN - 02/07/2024 8:25 AM EDT 37w1d Denies vaginal bleeding/rom Noticed some wetness yesterday but unsure if fluid or discharge. Noticed also this morning. + movement Contractions Was seen at ER for timable contractions but was sent home. documented in this encounter Plan of Treatment Upcoming Encounters Date Type Department Care Team (Late st Contact Info) Description 02/12/2024 8:45 AM EDT Office Visit Gynecology/Obstetrics [facility] [address] [place] [address] Mai Mar CRNP [address] [place] [address] 02/23/2024 8:45 AM EDT Office Visit Gynecology/Obstetrics [facility] [address] [place] [address] Mai Mar CRNP [address] [place] [address] Health Maintenance Due Date Last Done Comments [...]
== END 2024-02-17 09:35 | disposition home or self-care (01) ==
LOC: OPB 20:54 → 4S1 20:55 → INTOOBSV 02-17 01:42 → 4S1 02-17 01:42

== ENCOUNTER 2024-02-20 07:30 | Inpatient (IN) ==
[2024-02-20] MEDS ORDERED: LIDOCAINE 1% LOCAL 20 ML VIAL INFIL PRN (08:40)
[2024-02-20] MEDS ORDERED: OXYTOCIN 30 UNITS/NSS 30 UNITS/500 ML BAG IV PRN (08:40)
--- NOTE | 2024-02-20 08:57 | History & Physical Report ---
Date of Service February 20, 2024 Assessment & Plan Admission and Anticipated Discharge Date Admission Date: February 20, 2024 History of Present Illness Chief Complaint: induction of labor Primary Care Provider: Elzbieta Puri MD 28 F [id number] at 39 weeks here for IOL due to fast labors. GBS is positive. Allergies Allergy/AdvReac Type Severity Reaction Status Date / Time amoxicillin Allergy Mild Hives Verified 02/03/24 14:25 Home Medications Medication Instructions Recorded Confirmed Type vits no.124-ferrous fum 1 tab PO DAILY 01/31/24 02/20/24 History 27 mg iron-folic acid 800 mcg tablet ( Vitamin) Patient History Medical History (spontaneous vaginal delivery) 2014, 2017, 2020 Foot sprain Ankle sprain Anxiety Urinary tract infection Surgical History No pertinent past surgical history Family History Other Hypertension Social History Smoking Status: Never smoker Second Hand Exposure: No; Do You Dip or Chew Tobacco: No; Hx Alcohol Use: No Hx Substance Use: No Preferred Language: [place] Communication Ability: Effective Exploration Engineer Required: No Beliefs That Will Affect Care: None marital status: Current Living Situation: Spouse and Family Current Living Situation Comment: 3,5,8 kids Feels Safe at Home: Yes Assistive Devices: None 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 Review of Systems All systems reviewed & are unremarkable except as noted in HPI & below Physical Exam Constitutional: WD/WN, vitals as above Eyes: PERRL, conjunctivae normal, anicteric sclerae Cardiovascular: RRR, no murmur, no edema Gastrointestinal (Abdomen): Inspection/Auscultation: abdomen normal to inspection Musculoskeletal: Extremities: extremities normal to inspection Skin: no rashes, warm and dry Neurologic: patellar DTR's 2+ bilat, sensation intact Psychiatric: A+Ox3, euthymic affect Genitourinary: no vaginal lesions, no adnexal mass Manual OB Exam: + cervical dilation 3 cm and 4 cm, + cervical effacement 50% and + station -2 OB Exam Monitor Tracing: + external FHT monitor used, + external uterine monitor used, + category I and + normal FHT variability GBS positive EFW 8 lbs. Results & Data Vital Signs (Past 12 Hours) Vital Signs Temp Pulse Resp BP 02/20/24 07:42 92 H 133/70 02/20/24 07:06 36.6 C 92 H 20 133/70
--- OUTSIDE RECORDS SUMMARY | 2024-02-20 09:17 | External Medical Summary | Summary of Care ---
Author Name Unknown Organization [facility] Address [address] [facility] [place] [address] Phone [phone] Care Team Providers Care Quality Engineer Medical Device Name Role Phone Unavailable Primary Care Provider Unavailabl e Encounter Details Date Type Department Care Team (Late st Contact Info) Description 02/16/2024 Result Scan Unspecified Department Alia Umanzor MD [address] [place] [address] <No scans attached> Allergies Active Allergy Reactions Criticality Noted Date Comments Amoxicillin Hives,Rash High 07/18/2013 documented as of this encounter (statuses as of 02/19/2024) Medications Medication Sig Dispensed Refills Start Date End Date Status 27-0.8 MG Oral Tablet Take 1 Tablet by mouth daily at noon. 0 Active documented as of this encounter (statuses as of 02/19/2024) Active Problems Problem Noted Date Diagnosed Date GBS (group B Streptococcus c arrier), +RV culture, currently 02/07/2024 Supervision of other normal , antepartu m 07/20/2023 Rh negative status during 07/30/2020 Overview: A neg Vitamin D insufficiency 01/20/2015 Overview: Dec 2014 = 23. Anxiety state 01/19/2015 Overview: 2012 - saw counselor in [place], helpful. Suggested contacting her again, eliminating caffeine, getting sufficient rest, getting exercise. Family history of Down syndrome 12/12/2014 Overview: sister with down syndrome Estimated Date of Delivery Comme nts Yes 02/27/2024 Based on Ultraso und documented as of this encounter (statuses as of 02/19/2024) Resolved Problems Problem Noted Date Diagnosed Date [...] as of this encounter (statuses as of 02/19/2024) Immunizations Name Administration Dates Next Due Seasonal [...] money to get more. Never true 07/20/2023 [place] Depression Scale Answer Date Recorded [place] Depression Scale Total 7 01/23/2024 The thought [...] on file documented as of this encounter Plan of Treatment Upcoming Encounters Date Type Department Care Team (Late st Contact Info) Description 02/23/2024 8:45 AM EDT Office Visit Gynecology/Obstetrics [facility] [address] [place] [address] Mai Mar CRNP [address] [place] [address] Health Maintenance Due Date Last Done Comments [...] Not on filedocumented as of this encounter Procedures Procedure Name Priority Date/Time Associated Diagnosis Comments OUTSIDE LAB RESULTS 02/16/2024 documented in this encounter Results * OUTSIDE LAB RESULTS (02/16/2024) 02/16/2024 Alia Ni MD LABORATORY documented in this encounter
[2024-02-20] MEDS: LACTATED RINGER'S 1,000 ML IV PRN (09:24)
[2024-02-20] MEDS: PENICILLIN GK 6 MU in DEXTROSE 5% 250 ML IV STA (09:24)
[2024-02-20 09:26] LABS: Hematocrit (blood only) 34.3 % (37.0-47.0); Hemoglobin 11.5 g/dl (12.0-16.0); Mean Corpuscular Hemoglobin 26.8 pg (25.0-34.0); Mean Corpuscular Hgb Conc 33.5 g/dL (32.0-36.0); Mean Platelet Volume 9.9 fL (9.4-12.4); Platelet Count 277 K/uL (130-400); RDW Coefficient of Variation 14.4 % (11.5-14.5); RDW Standard Deviation 41.6 fL (36.4-46.3); Red Blood Count 4.29 M/uL (4.20-5.40); White Blood Count 11.69 K/ul (4.8-10.8)
[2024-02-20] MEDS: OXYTOCIN 30 UNITS/NSS 30 UNITS/500 ML BAG IV PRN (09:27)
[2024-02-20] MEDS: PENICILLIN GK 3 MU in DEXTROSE 5% 100 ML IV PRN (12:57)
--- NOTE | 2024-02-20 14:29 | Anesthesiology Consultation ---
Date of Service February 20, 2024 Assessment & Plan Chart Review Chart Review: Acceptable Risk for Labor Epidural Consults Requested none ASA ASA2 Proposed Anesthesia Anesthesia Type: Labor Epidural Risk / Benefits Reviewed With: PT / POA / Parent / Guardian, Accepts Plan and Informed Consent Obtained History Height/Weight Height: 5 ft 4 in Weight: 92.079 kg Allergies Allergy/AdvReac Type Severity Reaction Status Date / Time amoxicillin Allergy Mild Hives Verified 02/03/24 14:25 Medications Home Medications Medication Instructions Recorded Confirmed Last Taken vits no.124-ferrous fum 1 tab PO DAILY 01/31/24 02/20/24 02/19/24 19:00 27 mg iron-folic acid 800 mcg tablet ( Vitamin) Active Medications Generic Name Dose Route Start Last Admin Trade Name Freq PRN Reason Stop Dose Admin Lactated Ringer's 1,000 mls @ 125 mls/hr 02/20/24 08:40 02/20/24 09:24 Lr IV 02/22/24 08:39 125 mls/hr .Q8H PRN Administration L&D Protocol Protocol Penicillin G Potassium 3 mu/ 106 mls @ 100 mls/hr 02/20/24 11:59 02/20/24 12:57 Dextrose IV 03/01/24 11:58 100 mls/hr Q4H PRN Administration GBS(+) Until Delivery Oxytocin 30 units in 500 mls @ 11 mls/hr 02/20/24 08:53 02/20/24 12:30 Pitocin 30 Units/Nss IV 02/22/24 08:52 0.66 units/hr .Q24H PRN 11 mls/hr Labor Induction/Augmentation Titration Protocol 0.66 UNITS/HR Past Medical History Medical History (spontaneous vaginal delivery) 2014, 2017, 2020 Foot sprain Ankle sprain Anxiety Urinary tract infection Exercise / Class Metabolic Activity II 4-5 Yardwork/Stairs/Walk up hill Past Family History Family History Other Hypertension Past Surgical History Surgical History No pertinent past surgical history Past Anesthesia History No Hx of Anesthesia Complications and No Family Hx of Anesthesia Complications History of PONV No Hx of PONV and No Hx of Motion Sickness Social History Smoking Status: Never smoker Do You Dip or Chew Tobacco: No Hx Alcohol Use: No Hx Substance Use: No substance use type: does not use Physical Exam Vital Signs Last Vital Signs Temp 97.9 F 02/20/24 07:06 Pulse 93 H 02/20/24 14:01 Resp 20 02/20/24 07:06 BP 145/75 H 02/20/24 14:01 ENMT Mouth: no dentition abnormality Thyromental Distance: > or= 3.5 Finger Breadths Mallampati Class: II Neck normal visual inspection Respiratory normal respiratory effort Auscultation: lungs clear to auscultation bilaterally Cardiovascular Rate/Rhythm: regular rate and regular rhythm Testing Laboratory Results 02/20/24 08:56
[2024-02-20] MEDS: BUPIVACAINE 0.25% PF 30 ML VIAL ONE (14:42)
[2024-02-20] MEDS: LIDOCAINE 2%/EPINEPHRINE 1:200,000 20 ML PF ONE (14:48)
[2024-02-20] MEDS ORDERED: fentaNYL citrate PF 100 MCG/2 ML VIAL EPI PRN (14:51)
[2024-02-20] MEDS ORDERED: diphenhydrAMINE 50 MG/ML VIAL IV PRN ×2 (14:51→20:37)
[2024-02-20] MEDS ORDERED: NALOXONE HCL 1 MG in SODIUM CHLORIDE 0.9% 1,000 ML IV PRN ×2 (14:51→20:37)
[2024-02-20] MEDS ORDERED: ROPIVACAINE 0.5% PF 5 MG/ML 20 ML VIAL EPI PRN (14:51)
[2024-02-20] MEDS ORDERED: NALBUPHINE HCL 5 MG in SYRINGE 0 ML IV PRN ×2 (14:51→20:37)
[2024-02-20] MEDS ORDERED: fentANYL 2 MCG/ML BUPIVacaine 0.125%-NSS 100ML BAG EPI PRN (14:51)
[2024-02-20] MEDS ORDERED: ePHEDrine sulfate 50 MG/ML AMP IV PRN ×2 (14:51→20:37)
[2024-02-20] MEDS ORDERED: BUPIVACAINE 0.25% PF 30 ML VIAL EPI PRN (14:51)
[2024-02-20] MEDS ORDERED: LIDOCAINE 2% MPF LOCAL 5 ML VIAL EPI PRN (14:51)
[2024-02-20] MEDS ORDERED: ONDANSETRON INJ 2 MG/ML 2 ML VIAL IV PRN ×2 (14:51→20:37)
[2024-02-20] MEDS ORDERED: SODIUM CHLORIDE 0.9% PF INJ 10 ML VIAL EPI PRN (14:51)
[2024-02-20] MEDS ORDERED: NALOXONE HCL 0.4 MG/1 ML VIAL/CARP IV PRN ×2 (14:51→20:37)
[2024-02-20] MEDS: fentANYL 2 MCG/ML BUPIVacaine 0.125%-NSS 100ML BAG ONE (14:55)
[2024-02-20] MEDS: BUPIVACAINE 0.25% PF 30 ML VIAL EPI STA (15:25)
[2024-02-20] MEDS: fentaNYL citrate PF 100 MCG/2 ML VIAL EPI STA (15:25)
[2024-02-20] MEDS: LIDOCAINE 2%/EPINEPHRINE 1:200,000 20 ML PF EPI STA (15:25)
[2024-02-20] MEDS: fentaNYL citrate PF 100 MCG/2 ML VIAL ONE (15:25)
[2024-02-20] MEDS: SODIUM CHLORIDE 0.9% PF INJ 10 ML VIAL ONE (15:25)
[2024-02-20] MEDS: ePHEDrine sulfate 50 MG/ML AMP ONE (15:25)
[2024-02-20] MEDS: SODIUM CHLORIDE 0.9% PF INJ 10 ML VIAL EPI STA (15:26)
--- NOTE | 2024-02-20 16:36 | Labor Progress Brief Note ---
Date of Service February 20, 2024 Assessment & Plan Admission and Anticipated Discharge Date Admission Date: February 20, 2024 Physical Exam Genitourinary: Manual OB Exam: + cervical dilation 4 cm, + cervical effacement 50%, + station -1 and + amniotic fluid clear OB Exam Monitor Tracing: + external FHT monitor used, + external uterine monitor used, + category I and + normal FHT variability AROM with Amni-hook clear fluid Results & Data Vital Signs (Past 12 Hours) Vital Signs Temp Pulse Resp BP Pulse Ox 02/20/24 16:31 87 99 02/20/24 16:26 94 H 98 02/20/24 16:23 83 131/79 02/20/24 16:21 84 98 02/20/24 16:16 82 98 02/20/24 16:11 92 H 100 02/20/24 16:08 84 134/86 02/20/24 16:06 80 99 02/20/24 16:01 85 20 98 02/20/24 15:56 89 98 02/20/24 15:54 97 H 92 02/20/24 15:53 87 128/77 02/20/24 15:51 86 98 02/20/24 15:46 90 96 02/20/24 15:44 89 91 02/20/24 15:41 81 98 02/20/24 15:36 94 H 98 02/20/24 15:35 78 128/75 02/20/24 15:31 75 99 02/20/24 15:29 71 124/70 02/20/24 15:26 76 98 02/20/24 15:23 80 122/72 02/20/24 15:21 75 98 02/20/24 15:19 86 118/82 02/20/24 15:16 85 98 02/20/24 15:12 74 125/68 02/20/24 15:11 80 97 02/20/24 15:07 73 119/67 02/20/24 15:06 77 98 02/20/24 15:03 74 129/63 02/20/24 15:01 81 98 02/20/24 14:56 83 132/77 97 02/20/24 14:54 79 142/75 H 02/20/24 14:52 77 132/71 02/20/24 14:51 91 H 98 02/20/24 14:46 84 98 02/20/24 14:41 81 98 02/20/24 14:36 86 99 02/20/24 14:31 119 H 98 02/20/24 14:01 93 H 145/75 H 02/20/24 12:32 88 134/74 02/20/24 11:32 81 138/77 02/20/24 10:32 82 130/78 02/20/24 09:33 83 133/78 02/20/24 07:42 92 H 133/70 02/20/24 07:06 36.6 C 92 H 20 133/70
[2024-02-20] MEDS ORDERED: OXYTOCIN 10 UNITS/ML VIAL ONE (19:49)
[2024-02-20] MEDS ORDERED: LIDOCAINE 2%/EPINEPHRINE 1:200,000 20 ML PF ONE (19:49)
[2024-02-20] MEDS: CITRIC ACID/SODIUM CITRATE 15 ML UDC ONE (19:59)
[2024-02-20] MEDS: ceFAZolin 2000MG 2,000 MG/15 ML SYR IV ONE (20:12)
[2024-02-20] MEDS: CITRIC ACID/SODIUM CITRATE 15 ML UDC PO ONE (20:12)
[2024-02-20] MEDS ORDERED: MoRPHine SULFATE PF 1 MG/ML 10 ML AMP/VIAL ONE (20:29)
[2024-02-20] MEDS ORDERED: LACTATED RINGER'S 500 ML IV PRN (20:37)
[2024-02-20] MEDS ORDERED: NALOXONE HCL 0.08 MG in SYRINGE 1.8 ML IV PRN (20:37)
[2024-02-20] MEDS ORDERED: MEPERIDINE HCL 25 MG/ML CARP/VIAL IV PRN (20:37)
[2024-02-20] MEDS ORDERED: MoRPHine SULFATE PF 1 MG/ML 10 ML AMP/VIAL INT SPINAL ONE (20:37)
[2024-02-20] MEDS ORDERED: ONDANSETRON INJ 2 MG/ML 2 ML VIAL ONE (20:40)
[2024-02-20] MEDS ORDERED: SODIUM CHLORIDE 0.9% 1,000 ML IV SCH (20:45)
[2024-02-20] MEDS ORDERED: DC INTRASPINAL MORPHINE SCH (20:45)
[2024-02-20] MEDS ORDERED: NO NARCOTICS OR SEDATIVES SCH (20:45)
--- NOTE | 2024-02-20 21:31 | Anesthesiology Progress Note ---
Date of Service February 20, 2024 Anesthesia Post Procedure Vital Signs Vital Signs: Temp Pulse Resp BP Pulse Ox 02/20/24 21:28 86 100 02/20/24 21:23 67 L 02/20/24 21:23 100 H 02/20/24 21:23 96 H 84 L 02/20/24 21:20 81 118/62 02/20/24 21:18 88 98 02/20/24 20:11 103 H 99 02/20/24 20:08 78 115/61 02/20/24 20:06 79 98 02/20/24 20:01 88 98 02/20/24 19:56 75 96 02/20/24 19:54 76 99/52 L 02/20/24 19:51 73 98 02/20/24 19:46 90 98 02/20/24 19:43 118 H 82 L 02/20/24 19:41 119 H 99 02/20/24 19:39 116 H 140/87 02/20/24 19:37 92 H 90 02/20/24 19:36 92 H 98 02/20/24 19:31 93 H 98 02/20/24 19:29 74 127/69 02/20/24 19:26 80 97 02/20/24 19:21 85 99 02/20/24 19:16 81 98 02/20/24 19:11 97.7 F 02/20/24 19:11 82 98 02/20/24 19:08 89 122/61 02/20/24 19:06 77 98 02/20/24 19:01 75 99 02/20/24 18:56 78 99 02/20/24 18:53 80 109/63 02/20/24 18:51 81 99 02/20/24 18:46 84 97 02/20/24 18:41 86 98 02/20/24 18:38 76 128/77 02/20/24 18:36 88 97 02/20/24 18:31 78 98 02/20/24 18:26 76 97 02/20/24 18:24 82 133/76 02/20/24 18:21 92 H 98 02/20/24 18:16 86 97 02/20/24 18:11 81 97 02/20/24 18:08 72 128/68 02/20/24 18:06 83 97 02/20/24 18:01 91 H 99 02/20/24 17:56 81 99 02/20/24 17:53 78 140/68 02/20/24 17:51 82 99 02/20/24 17:46 82 98 02/20/24 17:41 85 97 02/20/24 17:36 77 98 02/20/24 17:31 78 99 02/20/24 17:26 81 98 02/20/24 17:21 82 98 02/20/24 17:16 82 98 02/20/24 17:11 84 98 02/20/24 17:08 79 131/74 02/20/24 17:06 84 97 02/20/24 17:01 83 97 02/20/24 16:56 89 98 02/20/24 16:53 74 134/78 02/20/24 16:51 102 H 100 02/20/24 16:46 85 99 02/20/24 16:41 80 98 02/20/24 16:39 78 130/68 02/20/24 16:36 76 98 02/20/24 16:31 87 20 99 02/20/24 16:26 94 H 98 02/20/24 16:23 83 131/79 02/20/24 16:21 84 98 02/20/24 16:16 82 98 02/20/24 16:11 92 H 100 02/20/24 16:08 84 134/86 02/20/24 16:06 80 99 02/20/24 16:01 85 20 98 02/20/24 15:56 89 98 02/20/24 15:54 97 H 92 02/20/24 15:53 87 128/77 02/20/24 15:51 86 98 02/20/24 15:46 90 96 02/20/24 15:44 89 91 02/20/24 15:41 81 98 02/20/24 15:36 94 H 98 02/20/24 15:35 78 128/75 02/20/24 15:31 75 99 02/20/24 15:29 71 124/70 02/20/24 15:26 76 98 02/20/24 15:23 80 122/72 02/20/24 15:21 75 98 02/20/24 15:19 86 118/82 02/20/24 15:16 85 98 02/20/24 15:12 74 125/68 04/02/24 15:11 80 97 02/20/24 15:07 73 119/67 02/20/24 15:06 77 98 02/20/24 15:03 74 129/63 02/20/24 15:01 81 98 02/20/24 14:56 83 132/77 97 02/20/24 14:54 79 142/75 H 02/20/24 14:52 77 132/71 02/20/24 14:51 91 H 98 02/20/24 14:46 84 98 02/20/24 14:41 81 98 02/20/24 14:36 86 99 02/20/24 14:31 119 H 98 02/20/24 14:01 93 H 145/75 H 02/20/24 12:32 88 134/74 02/20/24 11:32 81 138/77 02/20/24 10:32 82 130/78 02/20/24 09:33 83 133/78 02/20/24 07:42 92 H 133/70 02/20/24 07:06 97.9 F 92 H 20 133/70 Transfer of Care Handoff Completed per policy Notes Mental Status: alert / awake / arousable and participated in evaluation Nausea / Vomiting: adequately controlled Pain: adequately controlled Airway Patency, RR, SpO2: stable & adequate BP & HR: stable & adequate Hydration State: stable & adequate Neuraxial Anesthesia: was administered and sensory block is resolving Anesthetic Complications: no major complications apparent and Pt Satisfied with anesthetic care
--- NOTE | 2024-02-20 21:51 | Post Operative Brief Note ---
Immediate Post Op Note v1 Date of Surgery February 20, 2024 Pre & Post Diagnosis Operation Date: 02/20/24 20:00 Pre-Op Diagnosis: 1. primary section for hand presentation Post-Op Diagnosis: 1. primary section for hand presentation I identified the patient and participated in the time-out.: Yes Procedure Operation Date: 02/20/24 20:00 Actual Procedures p Section in LD for viable male at 2030. - Benjamin Suggs MD Surgeon Benjamin Suggs MD Firmware Architect Janny MALDONADO Estimated Blood Loss 511 (QBL) Findings Consistent with Post-Op Diagnosis live male Apgars 8/9 weight pending Fluids LR Specimens placenta Drains Sweet Catheter Anesthesia Type Labor Epidural Complications none Disposition Accompanied Patient To Recovery: Yes Overlapping Procedure I was present for: the critical portions of procedure. I was immediately available: during the entire case. Back up surgeon: was not required during procedure.
[2024-02-20] MEDS ORDERED: SENNA 8.6 MG TAB PO PRN (21:54)
[2024-02-20] MEDS ORDERED: BENZOCAINE 20% SPRY 85 APPLN/85 GM CAN EXT PRN (21:54)
[2024-02-20] MEDS ORDERED: HYDROCORTISONE ACETATE 25 MG SUPP PR PRN (21:54)
[2024-02-20] MEDS ORDERED: MAGNESIUM HYDROXIDE SUSP 30 ML UDC PO PRN (21:54)
--- NOTE | 2024-02-20 22:01 | Operative Report ---
Post Operative Report Pre & Post Diagnosis Operation Date: 02/20/24 20:00 Pre-Op Diagnosis: 1. primary section for hand presentation Post-Op Diagnosis: 1. primary section for hand presentation I identified the patient and participated in the time-out.: Yes Procedure Operation Date: 02/20/24 20:00 Actual Procedures p Section in LD for viable male infant at 2030. - Benjamin Suggs MD Surgeon Benjamin Suggs MD Religious Educator Janny Joel RN Estimated Blood Loss 511 Findings Consistent with Post-Op Diagnosis live male Apgars 8/9 Fluids LR Specimens placenta Drains Sweet 100 ml. Anesthesia Type Labor Epidural Complications none Disposition Accompanied Patient To Recovery: Yes Indications compound presentation with hand Description of Procedure Under satisfactory epidural anesthesia the patient was prepped draped usual sterile fashion a timeout was called port as well as procedure and an antibiotic was given preop. A Pfannenstiel incision was then made entering into the abdominal cavity in successive layers without difficulty upon entering into the abdominal cavity bladder flap was then developed with Metzenbaum scissors and then this was gently sharply dissected down with Metzenbaum scissors. A low s egment transverse incision over the lower uterine segment was then made entering into the uterine cavity with clear fluid that was noted the was then delivered from the vertex presentation and the hand was lifted out on the left- hand side due to a compound presentation. There was a 1 minute cord delay the cord was clamped and cut and handed to the basket grader delivering a live male Apgars were 8 and 9. Cord blood was obtained and the placenta was then delivered spontaneously and intact. Clean lap pad was used to clean out the inside of the uterus of all clots and debris Ring forceps were then placed on both angles and the inferior margin the uterus was then closed with a double layer closure of 0 Vicryl suture in a continuous fashion followed by a second imbricating layer of 0 Vicryl suture. Tubes ovaries bilaterally were found to be within normal limits. Uterus was then placed back into the normal anatomical position both angles were checked no active bleeding was noted. And the initial sponge and instrument count were found to be correct. The fascia was then reapproximated from both ends using 0 Vicryl suture in a continuous fashion followed by 3-0 plain interrupted suture for subcuticular space was then irrigated and the skin was reapproximated with maryse. The QBL was 511 mL and the patient was placed supine on stretcher taken recovery room in stable condit ion and the final sponge needle instrument count were found to be correct. I attest to the content of the Intraoperative Record and any orders documented therein. Any exceptions are noted below.
[2024-02-21] MEDS: OXYTOCIN 20 UNITS/LR 1,002 ML IV SCH (00:26)
[2024-02-21] MEDS: KETOROLAC 30 MG/ML VIAL IV PRN (04:12)
[2024-02-21] MEDS ORDERED: LACTATED RINGER'S 1,000 ML IV SCH (06:00)
[2024-02-21 06:25] LABS: Basophils # (auto) 0.04 K/uL (0.00-0.20); Basophils % (auto) 0.3 %; Eosinophils # (auto) 0.07 K/uL (0.00-0.50); Eosinophils % (auto) 0.5 %; Hematocrit (blood only) 29.8 % (37.0-47.0); Hemoglobin 9.9 g/dl (12.0-16.0); Immature Granulocytes # (auto) 0.07 K/uL (0.01-0.20); Immature Granulocytes % (auto) 0.5 %; Lymphocytes # (auto) 2.55 K/uL (1.20-3.40); Lymphocytes % (auto) 17.1 %; Mean Corpuscular Hemoglobin 26.5 pg (25.0-34.0); Mean Corpuscular Hgb Conc 33.2 g/dL (32.0-36.0); Mean Corpuscular Volume 79.9 fL (80.0-100.0); Mean Platelet Volume 9.9 fL (9.4-12.4); Monocytes % (auto) 7.4 %; Neutrophils # (auto) 11.09 K/uL (1.40-6.50); Neutrophils % (auto) 74.2 %; Platelet Count 254 K/uL (130-400); RDW Coefficient of Variation 14.6 % (11.5-14.5); RDW Standard Deviation 42.4 fL (36.4-46.3); Red Blood Count 3.73 M/uL (4.20-5.40); White Blood Count 14.92 K/ul (4.8-10.8)
[2024-02-21] MEDS: SIMETHICONE 80 MG CHEW PO SCH (07:57)
[2024-02-21] MEDS: FERROUS SULFATE 325 MG TAB PO SCH (07:57)
[2024-02-21] MEDS: PRENATAL VITAMIN 1 TAB PO SCH (07:58)
[2024-02-21] MEDS: DOCUSATE SODIUM 100 MG CAP PO SCH (07:58)
--- NOTE | 2024-02-21 08:58 | Obstetrical Progress Note ---
Date of Service February 21, 2024 Assessment & Plan Admission and Anticipated Discharge Date Admission Date: February 20, 2024 Subjective Patient is seen and examined. She feels well, no complaints. Pain is under control with meds. Not OOB yet Tolerating regular diet with out N&V Flatus + BM neg Bleeding is minimal No fever/ chills/ CP/ SOB/ N&V/ Leg pain Breast feeding without problems Vital Signs Temp Pulse Pulse Resp BP BP Pulse Ox 02/21/24 08:00 18 97 02/21/24 07:45 36.7 C 83 18 118/73 97 02/21/24 06:16 20 99 02/21/24 05:05 20 99 02/21/24 04:05 20 97 02/21/24 04:05 36.7 C 76 20 123/70 97 02/21/24 02:30 20 94 02/21/24 01:30 20 96 02/21/24 00:30 20 96 02/21/24 00:30 37.0 C 86 20 131/65 96 02/21/24 00:16 103 H 95 02/21/24 00:11 89 92 02/21/24 00:06 94 H 95 02/21/24 00:01 93 H 93 02/20/24 23:56 91 H 94 02/20/24 23:51 99 H 94 02/20/24 23:46 94 H 95 02/20/24 23:41 95 H 94 02/20/24 23:36 95 H 94 02/20/24 23:31 93 H 95 02/20/24 23:26 99 H 94 02/20/24 23:24 96 H 131/70 02/20/24 23:21 94 H 95 02/20/24 23:20 37.0 C 16 02/20/24 23:16 93 H 94 02/20/24 23:11 88 94 02/20/24 23:06 97 H 95 02/20/24 23:01 101 H 94 02/20/24 22:56 102 H 94 02/20/24 22:51 92 H 94 02/20/24 22:50 16 02/20/24 22:50 88 122/60 02/20/24 22:46 92 H 94 02/20/24 22:41 94 02/20/24 22:41 96 H 02/20/24 22:41 100 H 126/60 02/20/24 22:36 89 95 02/20/24 22:31 94 02/20/24 22:31 98 H 02/20/24 22:31 98 H 130/63 02/20/24 22:26 93 H 95 02/20/24 22:21 94 02/20/24 22:21 95 H 02/20/24 22:21 94 H 117/64 02/20/24 22:20 36.9 C 16 02/20/24 22:16 88 94 02/20/24 22:11 94 02/20/24 22:11 98 H 02/20/24 22:11 90 133/60 02/20/24 22:10 16 02/20/24 22:06 89 95 02/20/24 22:05 93 H 94 02/20/24 22:01 98 H 128/60 94 02/20/24 22:00 16 02/20/24 22:00 102 H 94 02/20/24 21:59 89 122/60 02/20/24 21:56 93 H 94 02/20/24 21:54 88 94 02/20/24 21:51 86 94 02/20/24 21:50 16 02/20/24 21:49 92 H 94 02/20/24 21:46 90 95 02/20/24 21:41 88 126/81 02/20/24 21:40 18 02/20/24 21:38 99 02/20/24 21:38 97 H 02/20/24 21:38 100 H 90 02/20/24 21:33 95 H 97 02/20/24 21:31 90 127/84 02/20/24 21:30 16 02/20/24 21:28 86 100 02/20/24 21:23 67 L 02/20/24 21:23 100 H 02/20/24 21:23 96 H 84 L 02/20/24 21:20 36.6 C 16 02/20/24 21:20 36.6 C 81 16 118/62 02/20/24 21:18 88 98 O2 Del Method 02/21/24 08:00 02/21/24 07:45 Room Air 02/21/24 06:16 02/21/24 05:05 02/21/24 04:05 02/21/24 04:05 Room Air 02/21/24 02:30 02/21/24 01:30 02/21/24 00:30 02/21/24 00:30 Room Air 02/21/24 00:16 02/21/24 00:11 02/21/24 00:06 02/21/24 00:01 02/20/24 23:56 02/20/24 23:51 02/20/24 23:46 02/20/24 23:41 02/20/24 23:36 02/20/24 23:31 02/20/24 23:26 02/20/24 23:24 02/20/24 23:21 02/20/24 23:20 Room Air 02/20/24 23:16 02/20/24 23:11 02/20/24 23:06 02/20/24 23:01 02/20/24 22:56 02/20/24 22:51 02/20/24 22:50 Room Air 02/20/24 22:50 02/20/24 22:46 02/20/24 22:41 02/20/24 22:41 02/20/24 22:41 02/20/24 22:36 02/20/24 22:31 02/20/24 22:31 02/20/24 22:31 02/20/24 22:26 02/20/24 22:21 02/20/24 22:21 02/20/24 22:21 02/20/24 22:20 02/20/24 22:16 02/20/24 22:11 02/20/24 22:11 02/20/24 22:11 02/20/24 22:10 02/20/24 22:06 02/20/24 22:05 02/20/24 22:01 02/20/24 22:00 02/20/24 22:00 02/20/24 21:59 02/20/24 21:56 02/20/24 21:54 02/20/24 21:51 02/20/24 21:50 02/20/24 21:49 02/20/24 21:46 02/20/24 21:41 02/20/24 21:40 02/20/24 21:38 02/20/24 21:38 02/20/24 21:38 02/20/24 21:33 02/20/24 21:31 02/20/24 21:30 02/20/24 21:28 02/20/24 21:23 02/20/24 21:23 02/20/24 21:23 02/20/24 21:20 02/20/24 21:20 02/20/24 21:18 Lab Results 02/20/24 02/21/24 Range/Units 08:56 05:41 WBC 11.69 H 14.92 H (4.8-10.8) K/ul RBC 4.29 3.73 L (4.20-5.40) M/uL Hgb 11.5 L 9.9 L (12.0-16.0) g/dl Hct 34.3 L 29.8 L (37.0-47.0) % MCV 80.0 79.9 L (80.0-100.0) fL MCH 26.8 26.5 (25.0-34.0) pg MCHC 33.5 33.2 (32.0-36.0) g/dL RDW Std Deviation 41.6 42.4 (36.4-46.3) fL RDW Coeff of Noemi 14.4 14.6 H (11.5-14.5) % Plt Count 277 254 (130-400) K/uL MPV 9.9 9.9 (9.4-12.4) fL Immature Gran % (Auto) 0.5 % Neut % (Auto) 74.2 % Lymph % (Auto) 17.1 % [place] % (Auto) 7.4 % Eos % (Auto) 0.5 % Baso % (Auto) 0.3 % Neut # (Auto) 11.09 H (1.40-6.50) K/uL Lymph # (Auto) 2.55 (1.20-3.40) K/uL [place] # (Auto) 1.10 H (0.11-0.59) K/uL Eos # (Auto) 0.07 (0.00-0.50) K/uL Baso # (Auto) 0.04 (0.00-0.20) K/uL Immature Gran # (Auto) 0.07 (0.01-0.20) K/uL Blood Type A Negative Antibody Screen NEGATIVE PE: General: Alert, orientedx3, NAD CVS: S1S2 RRR Lungs; CTAB Abd: soft, NT, ND, BS+, fundus firm, below Umbilicus Incision/ Dressing: Clean, dry, intact Perineum intact, Lochia rubra minimal Ext; NT, no edema AP: 28 yo s/p C Section, pod# 1 VSS Afebrile doing well Continue routine postop care Encourage ambulation, PO intake All questions were answered Results & Data Vital Signs (Past 12 Hours) Vital Signs Temp Pulse Pulse Resp BP BP Pulse Ox 02/21/24 08:00 18 97 02/21/24 07:45 36.7 C 83 18 118/73 97 02/21/24 06:16 20 99 02/21/24 05:05 20 99 02/21/24 04:05 20 97 02/21/24 04:05 36.7 C 76 20 123/70 97 02/21/24 02:30 20 94 02/21/24 01:30 20 96 02/21/24 00:30 20 96 02/21/24 00:30 37.0 C 86 20 131/65 96 02/21/24 00:16 103 H 95 02/21/24 00:11 89 92 02/21/24 00:06 94 H 95 02/21/24 00:01 93 H 93 02/20/24 23:56 91 H 94 02/20/24 23:51 99 H 94 02/20/24 23:46 94 H 95 02/20/24 23:41 95 H 94 02/20/24 23:36 95 H 94 02/20/24 23:31 93 H 95 02/20/24 23:26 99 H 94 02/20/24 23:24 96 H 131/70 02/20/24 23:21 94 H 95 02/20/24 23:20 37.0 C 16 02/20/24 23:16 93 H 94 02/20/24 23:11 88 94 02/20/24 23:06 97 H 95 02/20/24 23:01 101 H 94 02/20/24 22:56 102 H 94 02/20/24 22:51 92 H 94 02/20/24 22:50 16 02/20/24 22:50 88 122/60 02/20/24 22:46 92 H 94 02/20/24 22:41 94 02/20/24 22:41 96 H 02/20/24 22:41 100 H 126/60 02/20/24 22:36 89 95 02/20/24 22:31 94 02/20/24 22:31 98 H 02/20/24 22:31 98 H 130/63 02/20/24 22:26 93 H 95 02/20/24 22:21 94 02/20/24 22:21 95 H 02/20/24 22:21 94 H 117/64 02/20/24 22:20 36.9 C 16 02/20/24 22:16 88 94 02/20/24 22:11 94 02/20/24 22:11 98 H 02/20/24 22:11 90 133/60 02/20/24 22:10 16 02/20/24 22:06 89 95 02/20/24 22:05 93 H 94 02/20/24 22:01 98 H 128/60 94 02/20/24 22:00 16 02/20/24 22:00 102 H 94 02/20/24 21:59 89 122/60 02/20/24 21:56 93 H 94 02/20/24 21:54 88 94 02/20/24 21:51 86 94 02/20/24 21:50 16 02/20/24 21:49 92 H 94 02/20/24 21:46 90 95 02/20/24 21:41 88 126/81 02/20/24 21:40 18 02/20/24 21:38 99 02/20/24 21:38 97 H 02/20/24 21:38 100 H 90 02/20/24 21:33 95 H 97 02/20/24 21:31 90 127/84 02/20/24 21:30 16 02/20/24 21:28 86 100 02/20/24 21:23 67 L 02/20/24 21:23 100 H 02/20/24 21:23 96 H 84 L 02/20/24 21:20 36.6 C 16 02/20/24 21:20 36.6 C 81 16 118/62 02/20/24 21:18 88 98 O2 Del Method 02/21/24 08:00 02/21/24 07:45 Room Air 02/21/24 06:16 02/21/24 05:05 02/21/24 04:05 02/21/24 04:05 Room Air 02/21/24 02:30 02/21/24 01:30 02/21/24 00:30 02/21/24 00:30 Room Air 02/21/24 00:16 02/21/24 00:11 02/21/24 00:06 02/21/24 00:01 02/20/24 23:56 02/20/24 23:51 02/20/24 23:46 02/20/24 23:41 02/20/24 23:36 02/20/24 23:31 02/20/24 23:26 02/20/24 23:24 02/20/24 23:21 02/20/24 23:20 Room Air 02/20/24 23:16 02/20/24 23:11 02/20/24 23:06 02/20/24 23:01 02/20/24 22:56 02/20/24 22:51 02/20/24 22:50 Room Air 02/20/24 22:50 02/20/24 22:46 02/20/24 22:41 02/20/24 22:41 02/20/24 22:41 02/20/24 22:36 02/20/24 22:31 02/20/24 22:31 02/20/24 22:31 02/20/24 22:26 02/20/24 22:21 02/20/24 22:21 02/20/24 22:21 02/20/24 22:20 02/20/24 22:16 02/20/24 22:11 02/20/24 22:11 02/20/24 22:11 02/20/24 22:10 02/20/24 22:06 02/20/24 22:05 02/20/24 22:01 02/20/24 22:00 02/20/24 22:00 02/20/24 21:59 02/20/24 21:56 02/20/24 21:54 02/20/24 21:51 02/20/24 21:50 02/20/24 21:49 02/20/24 21:46 02/20/24 21:41 02/20/24 21:40 02/20/24 21:38 02/20/24 21:38 02/20/24 21:38 02/20/24 21:33 02/20/24 21:31 02/20/24 21:30 02/20/24 21:28 02/20/24 21:23 02/20/24 21:23 02/20/24 21:23 02/20/24 21:20 02/20/24 21:20 02/20/24 21:18
[2024-02-21] MEDS ORDERED: PRENATAL VITAMIN 1 TAB PO SCH (09:00)
[2024-02-21] MEDS: DIPHTHER/TETAN/PERTUS Vaccine (Tdap, Adol/Adult) 0.5mL IM ONE (13:09)
[2024-02-21] MEDS: IBUPROFEN 600 MG TAB PO PRN (14:25)
[2024-02-21] MEDS ORDERED: ONDANSETRON INJ 2 MG/ML 2 ML VIAL IV PRN (14:37)
[2024-02-21] MEDS ORDERED: diphenhydrAMINE Capsule 25 MG CAP PO PRN (14:37)
[2024-02-21] MEDS ORDERED: KETOROLAC 30 MG/ML VIAL IV PRN (14:37)
[2024-02-21] MEDS ORDERED: diphenhydrAMINE 50 MG/ML VIAL IV PRN (14:37)
[2024-02-21] MEDS ORDERED: PROMETHAZINE HCL 25 MG in SODIUM CHLORIDE 0.9% 50 ML IV PRN (14:37)
[2024-02-21] MEDS ORDERED: MEPERIDINE HCL 50 MG/ML CARP IV PRN (14:37)
[2024-02-21] MEDS: oxyCODONE/ACETAMINOPHEN 5mg/325mg TAB PO PRN (15:15)
[2024-02-21] MEDS: bisacodyL 5 MG TABEC PO SCH (20:35)
--- NOTE | 2024-02-22 03:16 | Obstetrical Progress Note ---
Date of Service February 22, 2024 Assessment & Plan Admission and Anticipated Discharge Date Admission Date: February 20, 2024 Subjective I was called that she has been having feeling of shakiness and chest tightness for the last 5-10 min No SOB/ fever/chills/ sore throat She state she is scared, not sure she had anxiety. She has not slept since delivery, over 24 hours ago VSS Afebrile Pulse ox: 100% RA CVS S1S2 RRR Lungs CTAB ECG: Normal Sinus rhythm Normal ECG Abd soft, NT, fundus firm, incision C/D/I Lochia minimal Ext NT, no edema AP: 28 yo s/p emergency Csection for hand presentation, now with chest tightness, anxiety VSS Afebrile, doing well ECG normal Most likely anxiety, exhaustion Recommended pain control, rest, baby to nursery after feed, Lorazepam as needed All questions were answered. Results & Data Vital Signs (Past 12 Hours) Vital Signs Temp Pulse Pulse Resp BP Pulse Ox O2 Del Method 02/21/24 23:15 36.6 C 87 18 124/66 96 Room Air 02/21/24 20:40 36.6 C 92 H 18 116/70 97 Room Air 02/21/24 15:15 18 98 02/21/24 15:15 36.7 C 95 H 18 117/73 98 Room Air
[2024-02-22] MEDS ORDERED: LORazepam 0.5 MG TAB PO PRN (03:30)
[2024-02-22 08:33] VITALS: BP 120/77; PULSE 84; RESP 16; TEMP 97.7; O2SAT 98
--- NOTE | 2024-02-22 09:19 | Obstetrical Progress Note ---
Date of Service February 22, 2024 Subjective Ambulation: ambulating normally Voiding: no voiding problems Passing Gas:: Yes Diet Tolerance:: regular diet Lochia:: Small Feeding Type:: breast feeding Current Pain Level(1-10): 0 doing well Physical Exam Constitutional WD/WN, vitals as above Gastrointestinal (Abdomen) Inspection/Auscultation: abdomen normal to inspection incision c/d/i Musculoskeletal Extremities: extremities normal to inspection Skin no rashes, warm and dry Neurologic patellar DTR's 2+ bilat, sensation intact Psychiatric A+Ox3, euthymic affect Results & Data Vital Signs (Past 12 Hours) Vital Signs Temp Pulse Resp BP Pulse Ox O2 Del Method 02/22/24 08:00 36.5 C 84 16 120/77 98 Room Air 02/22/24 03:00 36.6 C 89 18 145/82 H 100 Room Air 02/21/24 23:15 36.6 C 87 18 124/66 96 Room Air Laboratory Results 02/20/24 02/21/24 02/22/24 08:56 05:41 03:01 WBC 11.69 H 14.92 H RBC 4.29 3.73 L Hgb 11.5 L 9.9 L Hct 34.3 L 29.8 L MCV 80.0 79.9 L MCH 26.8 26.5 MCHC 33.5 33.2 RDW Std Deviation 41.6 42.4 RDW Coeff of Noemi 14.4 14.6 H Plt Count 277 254 MPV 9.9 9.9 Immature Gran % (Auto) 0.5 Neut % (Auto) 74.2 Lymph % (Auto) 17.1 [place] % (Auto) 7.4 Eos % (Auto) 0.5 Baso % (Auto) 0.3 Neut # (Auto) 11.09 H Lymph # (Auto) 2.55 [place] # (Auto) 1.10 H Eos # (Auto) 0.07 Baso # (Auto) 0.04 Immature Gran # (Auto) 0.07 POC Glucose 111 H Blood Type A Negative A Negative Antibody Screen NEGATIVE Screen Negative
[2024-02-22 09:46] LABS: Basophils # (auto) 0.02 K/uL (0.00-0.20); Basophils % (auto) 0.2 %; Eosinophils # (auto) 0.09 K/uL (0.00-0.50); Eosinophils % (auto) 0.8 %; Hematocrit (blood only) 30.6 % (37.0-47.0); Hemoglobin 9.7 g/dl (12.0-16.0); Immature Granulocytes # (auto) 0.09 K/uL (0.01-0.20); Immature Granulocytes % (auto) 0.8 %; Lymphocytes # (auto) 2.07 K/uL (1.20-3.40); Lymphocytes % (auto) 17.7 %; Mean Corpuscular Hemoglobin 26.2 pg (25.0-34.0); Mean Corpuscular Hgb Conc 31.7 g/dL (32.0-36.0); Mean Corpuscular Volume 82.7 fL (80.0-100.0); Mean Platelet Volume 9.5 fL (9.4-12.4); Monocytes # (auto) 0.78 K/uL (0.11-0.59); Monocytes % (auto) 6.7 %; Neutrophils # (auto) 8.67 K/uL (1.40-6.50); Neutrophils % (auto) 73.8 %; Platelet Count 277 K/uL (130-400); RDW Coefficient of Variation 14.8 % (11.5-14.5); RDW Standard Deviation 44.2 fL (36.4-46.3); White Blood Count 11.72 K/ul (4.8-10.8)
[2024-02-22 10:06] LABS: Alanine Aminotransferase 16 U/L (7-52); Albumin Level 2.9 gm/dl (3.4-5.0); Alkaline Phosphatase 81 U/L (34-104); Anion Gap 8 (3-11); Aspartate Aminotransferase 28 U/L (13-39); BUN Creatinine Ratio 13.5 (10-20); Bilirubin,Total 0.3 mg/dl (0.2-1.0); Blood Urea Nitrogen 5 mg/dl (6-23); Calcium 8.2 mg/dl (8.6-10.3); Carbon Dioxide 21 mmol/L (21-32); Chloride 107 mmol/L (98-107); Creatinine Clr Calc Pharmacy 248.9 ml/min; Est GFR (African American) > 150.0 ml/min; Est GFR (Non-African American) 145.4 ml/min; Glucose 127 mg/dl (70-99(Fasting)); Potassium 3.6 mmol/L (3.5-5.1); Sodium 136 mmol/L (136-145); Total Protein 5.9 gm/dl (6.0-8.3)
[2024-02-22] MEDS ORDERED: bisacodyL 10 MG SUPP PR PRN (21:47)
--- NOTE | 2024-02-24 06:33 | Electrocardiogram Report ---
Test Reason : Blood Pressure : / mmHG Vent. Rate : 099 BPM Atrial Rate : 099 BPM P-R Int : 148 ms QRS Dur : 084 ms QT Int : 344 ms P-R-T Axes : 043 039 038 degrees QTc Int : 441 ms Poor data quality, interpretation may be adversely affected Normal sinus rhythm Normal ECG When compared with ECG of 09-JAN-2015 14:12, No significant change was found Confirmed by Stan Reeves ([id number]) on 02/24/2024 6:33:13 AM Referred By: Benjamin Suggs Confirmed By:Stan Reeves
== END 2024-02-22 11:20 | disposition home or self-care (01) | DRG 788 ==
LOC: 4S1 07:30 → 4E2 02-21 00:39
DX: Z88.1 Allergy status to other antibiotic agents; Z3A.39 39 weeks gestation of pregnancy; O32.6XX0 Maternal care for compound presentation, not applicable or unspecified; O99.824 Streptococcus B carrier state complicating childbirth; Z87.59 Personal history of other complications of pregnancy, childbirth and the puerperium; Z37.0 Single live birth